=== PATIENT | male | born 1995 | race Caucasian/White ===

== ENCOUNTER 2024-11-21 17:53 | Emergency (ER) | payer SELFPAY ==
[2024-11-21 18:00] VITALS: BP 157/90; PULSE 84; RESP 17; TEMP 36.8; O2SAT 99; BMI 21.1
--- NOTE | 2024-11-21 18:07 | XRR_ITS ---
PROCEDURE INFORMATION: Exam: XR Left Knee Exam date and time: 11/21/2024 6:11 PM Age: 29 years old Clinical indication: Injury or trauma; Fall; Blunt trauma; Injury details: PT states he slipped and fell and dislocated his left knee. PT states he is unable to straighten left knee. ; Additional info: Fall, pain TECHNIQUE: Imaging protocol: Radiologic exam of the left knee. Views: 3 views. COMPARISON: No relevant prior studies available. FINDINGS: Bones/joints: Transverse fracture through the patella with about 10 mm distraction between the superior and inferior fragments. Visualized femur and tibia/fibula appear intact. Small joint effusion. Soft tissues: Moderate prepatellar soft tissue swelling. XR/XR knee LT 3V* [id number] IMPRESSION: Acute patellar fracture with moderate overlying soft tissue swelling.
--- NOTE | 2024-11-21 18:23 | W.ED.EXTPRO ---
HPI - Extremity Problem General: Chief complaint: Extremity Injury, Lower Stated complaint: left knee pain Time Seen by Provider: 11/21/24 19:06 Source: patient Mode of arrival: wheelchair Limitations: no limitations History of Present Illness: 29yo male presents with his significant other for evaluation of left knee pain and swelling following a slip and fall on a wet surface. Patient reports that he was walking to his vehicle in the elevated driveway when he slipped and his left knee hit the concrete side of the driveway. Patient states he is not able to bear weight on the knee. He also struck his right arm and the right side of his head. He denies loss consciousness, vomiting, neck pain, any other concerns at this time. Associated symptoms: Deny fever(s) Related Data Previous Rx's ?Medication ?Instructions ?Recorded hydrocodone 5 mg-acetaminophen 325 1 tab PO Q4H PRN pain, moderate 11/21/24 mg tablet #20 tabs ondansetron 4 mg disintegrating 4 mg PO Q6H PRN nausea and 11/21/24 tablet vomiting #20 tabs Allergies Allergy/AdvReac Type Severity Reaction Status Date / Time No Known Allergies Allergy Verified 11/21/24 18:02 Review of Systems Const: Denies: fever(s) or chills Eyes: Denies: change in vision Resp: Denies: dyspnea GI: Denies: nausea or vomiting Musc: Reports: extremity pain (left knee) and limited range of motion; Denies: neck pain Neuro: Denies: headache(s) Physical Exam Const: COMMON NORMALS: no acute distress, healthy appearing and alert GENERAL APPEARANCE: cooperative ORIENTATION/CONSCIOUSNESS: Yes awake OTHER: Patient is laying on the stretcher in no acute distress. He is able to give history with no difficulty. He is interactive with exam appropriately. Significant other is at bedside HENMT: COMMON NORMALS: normocephalic HEAD & SCALP: normocephalic Neck/C-Spine: COMMON NORMALS: full ROM Resp: COMMON NORMALS: normal respiratory effort and No use of accessory muscles Extremity: LEFT LOWER EXTREMITY: Yes knee joint Left knee: Yes palpation (tenderness, effusion) and Yes ROM (Decreased due to pain) OTHER: Patient opted to keep pants in place during exam. Sensation intact left lower leg, DP 2+, +movement left foot & toes Neuro: SENSORIUM/ORIENTATION: Yes alert Skin: TRAUMA: abrasion (right forehead, right forearm) Course Vital Signs: Vital signs: Vital Signs Temperature 98.2 F 11/21/24 18:00 Pulse Rate 84 11/21/24 18:00 Respiratory Rate 16 11/21/24 19:27 Blood Pressure 157/90 11/21/24 18:00 Pulse Oximetry 99 11/21/24 18:00 Oxygen Delivery Me thod Room Air 11/21/24 18:00 MDM - Extremity (Nontraumatic) Medical Decision Making 29yo male presents with his significant other for evaluation of left knee pain and swelling following a slip and fall on a wet surface. Patient reports that he was walking to his vehicle in the elevated driveway when he slipped and his left knee hit the concrete side of the driveway. Patient states he is not able to bear weight on the knee. He also struck his right arm and the right side of his head. He denies loss consciousness, vomiting, neck pain, any other concerns at this time. Patient is nontoxic in appearance. Vital signs are stable. X-ray obtained prior to room placements reveals a left patella fracture. Discussed findings and reviewed image with patient and family. Discussed use of knee immobilizer and crutches. Advised to avoid weightbearing until he has been evaluated by orthopedics, then following orthopedic plan. Short course pain medications have been sent to patient's pharmacy as well as nausea medications. Referral placed to medical management for orthopedic referral, advised to follow-up as soon as possible. Return precautions provided. Patient states understanding and has no further questions or concerns at this time. Lab Data Radiology Impressions Knee X-Ray 11/21/24 18:07 IMPRESSION: Acute patellar fracture with moderate overlying soft tissue swelling. All radiology interpretation(s) finalized by discharge Discharge Plan Discharge Patient Disposition: Home Clinical Impression: Left patella fracture Qualifiers: Encounter type: initial encounter Fracture type: closed Fracture morphology: transverse Fracture alignment: displaced Qualified Code(s): S82.032A - Displaced transverse fracture of left patella, initial encounter for closed fracture Fall from slipping on wet surface Qualifiers: Encounter type: initial encounter Qualified Code(s): W01.0XXA - Fall on same level from slipping, tripping and stumbling without subsequent striking against object, initial encounter Condition: Stable Prescriptions: New ondansetron 4 mg tablet,disintegrating 4 mg PO Q6H PRN (Reason: nausea and vomiting) Qty: 20 0RF hydrocodone-acetaminophen 5-325 mg tablet 1 tab PO Q4H PRN (Reason: pain, moderate) Qty: 20 0RF Discharge Orders: Discharge ED (Routine); Ordered 11/21/24 Ordered By: Danny Berg Referrals: Valeria Neri, [employer] [Primary Care Provider] - Discharge Diet: Usual diet Discharge Activity: Limit activity as instructed Patient Instructions: Patellar Fracture (ED), Opioid Safety Activity Restrictions/Additional Instructions: A referral has been placed to orthopedics for a follow-up of the patella fracture Short course hydrocodone and ondansetron have been sent to the pharmacy for pain and nausea that is typically caused by the pain medication. Please do not drive or operate heavy machinery while taking hydrocodone. Use the knee immobilizer to protect the knee from further injury. Use the crutches to avoid weightbearing until you have been cleared by orthopedics Elevation and application of ice for 10 to 15 minutes will help with the swelling of the knee Follow-up with orthopedics as soon as possible Return to the emergency department if any further injury, rapid worsening symptoms, and as needed Print Language: [place] Coding Level of Care Code ED Jewel Lathe Operator for Jasper Licea
[2024-11-21 19:27] VITALS: RESP 16
[2024-11-21] MEDS: morphine 4 mg/mL SDV 1 mL IM (19:27)
[2024-11-21] MEDS: ondansetron hcl ODT 4 mg Tab PO (19:28)
--- NOTE | 2024-11-24 09:25 | DCPLANNER ---
Referral sent to Ortho on 11/24/24: Patient seen in ED on 11/21/24: 29yo male presents with his significant other for evaluation of left knee pain and swelling following a slip and fall on a wet surface. Patient reports that he was walking to his vehicle in the elevated driveway when he slipped and his left knee hit the concrete side of the driveway. Patient states he is not able to bear weight on the knee. A referral has been placed to orthopedics for a follow-up of the patella fracture. S82.002A- Unspecified fracture of left patella, initial encounter for closed fracture
== END 2024-11-21 19:45 | disposition home or self-care (01) ==
PROVIDERS: Emergency Provider Nurse Practitioner; Family Provider Nurse Practitioner; PCP Nurse Practitioner
DX: S82.032A Displaced transverse fracture of left patella, initial encounter for closed fracture (principal); W01.0XXA Fall on same level from slipping, tripping and stumbling without subsequent striking against object, initial encounter
CPT/HCPCS: 29530; 73562; 96372; 99284; E0114; J2270; Q0162

== ENCOUNTER 2024-12-03 12:19 | Day surgery (SDC) | payer SELFPAY ==
[2024-12-03] VITALS (9 sets, daily range): BP systolic 125–155; BP diastolic 92–109; PULSE 69–88; RESP 16–17; TEMP 36.2–36.6; O2SAT 93–98; BMI 21.1
[2024-12-03] MEDS: sodium chloride 0.9% 1,000 ML 30 ML IV (12:56)
--- NOTE | 2024-12-03 16:00 | P.HPUD_ITS ---
Surgery/Procedure H&P Update DATE OF PROCEDURE: December 03, 2024 DATE H&P PERFORMED: 12/02/24 H&P UPDATE INFORMATION: I have reviewed H&P completed within last 30 days, I have examined patient prior to procedure, No changes to prior documentation, H&P is in [facility] EMR on date indicated and Risks and benefits of the procedure reviewed PREOP DIAGNOSIS: fractured Left Patella PLANNED PROCEDURE: Operation Date: 12/03/24 15:05 Proposed Procedures p ORIF Patella(Left) - Janak Sarkar MD
[2024-12-03] MEDS: ceFAZolin 2,000 mg SDV 2000 MG IVP (16:47)
--- NOTE | 2024-12-03 17:00 | ANES.PROC ---
Anesthesia Procedures Procedure/Date: 12/03/24 Nerve Block ^: Nerve Block 1: Main Anesthesia: general anesthesia Time Out Performed: Yes Consent: requested by attending/covering physician and patient agrees to proceed Nerve block location: adductor canal (left) Anesthesia monitors applied: pulse oximetry, EKG, BP cuff and oxygen Nerve block position: supine Anesthetic Used: ropivicaine 0.5% Amount of anesthesia used (mL): 20 Ultrasound used to: recognize landmarks Nerve Stimulator Used?: No Interscalene/Femoral BLK: 4 stimuplex 21 g needle used for position and inplane approach Injection: neg aspiration of heme Patient Tolerated Procedure: well Complications: none
--- NOTE | 2024-12-03 17:43 | XR_ITS ---
WS: [id number] Left knee, C-arm fluoroscopy views of the left patella, 12/03/2024 Clinical Data: OR PICS ORIF PATELLA Comparison: Left knee, 11/21/2024 Findings: Dr. Arndt reduced the mid body fracture of the left patella XR/XR knee LT 1-2V [id number] Impression: Internal fixation of left patellar fracture.
--- NOTE | 2024-12-03 17:57 | PM.OP ---
Operative Report Date of procedure: December 03, 2024 Surgeon: Janak Sarkar MD Procedure: Preoperative diagnosis: Fractured left patella Postop diagnosis: Same Procedure: Open reduction internal fixation of left patella fracture using tension band wiring Surgeon: Janak Sarkar MD Form Tamping Machine Operator: TOÑA Valenzuela was needed for assistance during the procedure with positioning patient, assisting during the procedure, assistance with wound closure, dressing placement, brace placement. Anesthesia: General With adductor canal block EBL: None Tourniquet time: 35 minutes at 250 mmHg Indications: George is a 29-year-old white male who approximately 12 days ago slipped on a wet surface and fell directly on his left knee. He had pain and inability to bear weight. He was seen in the emergency department where x-rays demonstrated a transverse fracture of his left patella. He was placed in a knee immobilizer and advised to follow-up with orthopedics. It took some time to finally reach the patient as well as set up an appointment. On evaluation reviewed the x-rays it was felt from an orthopedic standpoint he needed to have an open reduction internal fixation of the fracture fragments because there were so displaced. All risk benefits treatment alternatives were discussed with the patient he is agreeable to this at this time. Procedure: After obtaining written consent patient was taken to the operating room placed on the operative table supine position general anesthetic administered. Good anesthesia was achieved patient had an adductor canal block administered by anesthesia. Once this is completed a pneumatic cuffs placed around the proximal left thigh. Left leg was prepped and draped in usual fashion. After surgical timeout and gravity exsanguination pneumatic cuff was inflated to 250 mmHg. Longitudinal incision was made from tibial tubercle to just above superior pole of patella. Dissection was taken on down just to subcutaneous tissues to clear the extensor mechanism anteriorly. Fracture line was identified and there was old hematoma and fluid draining from the knee outwardly. This is irrigated and cleared. Fracture line was freed up sharply of all soft tissues impinging in there. Curette was used to remove the fracture hematoma. Once adequate debridement of the fracture line was done 2 [id number] bone clamps were placed superior to the inferior and the fracture was reduced. Once is adequately reduced and confirmed under fluoroscopic evaluation to guide pins were placed from superior to inferior and parallel fashion and perpendicular to the fracture line. This was confirmed under fluoroscopic evaluation. Depth of the drill holes was measured off these guidepins. Subsequently appropriate length 4.0 cannulated partially-threaded screws were placed over these guidewires from superior to inferior with good compression at the fracture site. This is also again confirmed on fluoroscopic evaluation. 18-gauge guidewire was then placed down through these cannulated screws after the guidepins had been removed. At this point soft tissues across the fracture line were repaired 0 Vicryl [id number] sutures. Wires were then crossed over in the front and twisted down superiorly and a tension band fashion. Good compression of the fracture site was identified visually. Interoperative fluoroscopy both AP and lateral views demonstrated adequate reduction of the fracture fragments against securing the fragments. Wires were cut off and ends were buried into the soft tissues. Wound was washed with sterile irrigation. 0 Vicryl interrupted sutures were used to reapproximate the subcutaneous tissues. Skin was closed with skin vladimir. Wounds are clean and dry dressed with Xeroform gauze sterile gauze dressing Kerlix wrap and Trell wrap for compression. Patient placed in a locking hinged knee brace with leg out to full extension. Patient was awakened transferred to cover room in stable condition
--- NOTE | 2024-12-03 18:03 | ANE.PACU2 ---
Inpatient post-anesthesia follow up: Airway intact: Yes Vital signs: Temperature 97.3 F Pulse Rate 69 Respiratory Rate 16 Blood Pressure 142/98 Pulse Oximetry 98 Oxygen Delivery Me thod Simple Mask Oxygen Flow Rate 8 Fraction of Inspir ed Oxygen Hydration adequate: Yes Nausea and vomiting: No Pain level: 2 Mental status: Baseline
== END 2024-12-03 19:35 | disposition home or self-care (01) ==
PROVIDERS: PCP Nurse Practitioner Family; Visit Provider Orthopaedic Surgery
PROC: (CPT 27524; principal; 2024-12-03 15:05)
DX: S82.032A Displaced transverse fracture of left patella, initial encounter for closed fracture (principal); W01.0XXA Fall on same level from slipping, tripping and stumbling without subsequent striking against object, initial encounter
CPT/HCPCS: 27524; 73560; 76000; C1713; J0690; J1100; J2250; J2405; J2704; J2795; J3010; J7030; J9999

== ENCOUNTER → 2025-01-01 11:10 | Outpatient (BNVA) | payer MEDICAID, SELFPAY | PROVIDERS: PCP Nurse Practitioner Family; Visit Provider Orthopaedic Surgery | DX: S82.032A Displaced transverse fracture of left patella, initial encounter for closed fracture (principal); X58.XXXA Exposure to other specified factors, initial encounter | CPT/HCPCS: 73562; 99024 ==

== ENCOUNTER → 2025-01-13 10:24 | Outpatient (BNVA) | payer MEDICAID, SELFPAY | PROVIDERS: PCP Nurse Practitioner Family; Visit Provider Orthopaedic Surgery | DX: S82.032D Displaced transverse fracture of left patella, subsequent encounter for closed fracture with routine healing (principal); X58.XXXD Exposure to other specified factors, subsequent encounter | CPT/HCPCS: 73562 ==

== ENCOUNTER → 2025-01-27 15:03 | Outpatient (BNVA) | payer MEDICAID, SELFPAY | PROVIDERS: PCP Nurse Practitioner Family; Visit Provider Orthopaedic Surgery | DX: S82.032D Displaced transverse fracture of left patella, subsequent encounter for closed fracture with routine healing (principal); X58.XXXD Exposure to other specified factors, subsequent encounter | CPT/HCPCS: 73560; 73562; 73565 ==

== ENCOUNTER 2025-04-06 12:55 | Outpatient (CLI) | payer MEDICAID, SELFPAY ==
--- NOTE | 2025-04-06 13:01 | MR_ITS ---
WS: [id number] MRI RIGHT KNEE NONCONTRAST TECHNIQUE: Axial PD, coronal PD fat sat, coronal PD, sagittal PD, and sagittal PD fat-sat images obtained. CLINICAL INFORMATION: ACUTE PAIN OF RIGHT KNEE COMPARISON: None. FINDINGS: Distal quadriceps and patella tendons are intact. Hypertrophic patella. Mild chondromalacia patella. Medial and lateral patellar retinaculum intact. Small suprapatellar effusion. Normal ACL and PCL. Normal lateral meniscus. Complex bucket-handle type tear involving the medial meniscus. Blunting of the anterior and posterior horns. Small meniscal fragment extends along the intercondylar fossa. Suspected flipped meniscus. In addition, grade 2 injury of the medial collateral ligament with fluid and edema along the superficial and deep fibers. MCL appears grossly intact. Normal LCL and popliteus. Normal bone marrow signal femoral condyles and tibial plateau. Fibular head appears normal. Normal popliteal fossa. MR/MR knee RT wo con* [id number] IMPRESSION: 1. ACL and PCL appear intact. 2. Complex bucket-handle type tear involving the medial meniscus with a small meniscal fragment extending into the intercondylar fossa. Suspected flipped men iscus along the anterior horn 3. Grade 2 injury of the MCL. 4. Small subpatellar effusion. 5. Mild chondromalacia patella. Outbridge grading:
== END 2025-04-06 12:56 | disposition home or self-care (01) ==
LOC: RAD 12:55
PROVIDERS: PCP Nurse Practitioner Family; Visit Provider Nurse Practitioner Family
DX: S83.211A Bucket-handle tear of medial meniscus, current injury, right knee, initial encounter (principal); X58.XXXA Exposure to other specified factors, initial encounter; R93.6 Abnormal findings on diagnostic imaging of limbs; M25.461 Effusion, right knee; M22.41 Chondromalacia patellae, right knee; M89.38 Hypertrophy of bone, other site
CPT/HCPCS: 73721